=== PATIENT | male | born 1970 | race Caucasian/White ===

== ENCOUNTER → 2024-08-29 17:47 | Outpatient (REF) | payer BC, SELFPAY | LOC: RAD 17:47 | PROVIDERS: ATTENDING PHYSICIAN Family Medicine | DX: M79.671 Pain in right foot (principal) | CPT/HCPCS: 73630 ==

== ENCOUNTER → 2025-03-09 10:42 | Outpatient (REF) | payer SELFPAY | LOC: RAD 10:42 | PROVIDERS: ATTENDING PHYSICIAN Family Medicine | DX: E78.00 Pure hypercholesterolemia, unspecified (principal) | CPT/HCPCS: 75571 ==